=== PATIENT | female | born 1990 | race Caucasian/White ===

== ENCOUNTER 2018-01-14 11:57 | Inpatient (IN) | payer BC ==
[~2018-01-14] VITALS: Ht 167.6 cm; Wt 81.8 kg
[2018-01-14] VITALS (9 sets, daily range): BP systolic 89–1105; BP diastolic 44–60; PULSE 95–107; TEMP 99.3–100.8
[~2018-01-14 11:57] MED LIST: FOLIC ACID0.4 MG PO; LAMICTAL 100MG100 MG; MAG-OX 400400 MG/TAB PO; MULTIVITAMIN FO1 CAP PO; ULTRAM 50MG TAB50 MG PO; VIMPAT200 MG PO; VIT D; ZOFRAN8 MG PO
[2018-01-14] MEDS ORDERED: KLOR-CON 88 ME1 PO (12:34)
[2018-01-14 12:36] LABS: HEMATOCRIT 39.6 % (37.0-47.0); HEMOGLOBIN 13.5 g/dl (12.5-16.0); MEAN CELL VOLUME 89 fl (80.0-100.0); MEAN CORPUSCULAR HEMOGLOBIN 30 pg (27.0-31.0); MEAN CORPUSCULAR HGB CONC 34 g/dl (33.0-37.0); MEAN PLATELET VOLUME 9.4 fl (7.4-10.4); PLATELET COUNT 320 K/mm3 (130-400); RED BLOOD COUNT 4.44 M/mm3 (4.10-5.30); REDCELL DISTRIBUTION WIDTH-CV 12.3 % (11.5-14.5)
[2018-01-14 12:43] LABS: ALANINE AMINOTRANSFERASE 35 U/L (9-52); ALBUMIN 4.7 gm/dL (3.5-5.0); ALKALINE PHOSPHATASE 104 U/L (50-136); ANION GAP 14 mmol/L (7-16); AST,SGOT 26 U/L (15-37); BILIRUBIN,TOTAL 3.5 mg/dL (0.0-1.0); BLOOD UREA NITROGEN 11 mg/dL (7-17); CALCIUM 9.2 mg/dL (8.4-10.2); CARBON DIOXIDE 25 mmol/L (22-30); CHLORIDE 96 mmol/L (98-107); CREATININE, serum 0.95 mg/dL (0.52-1.25); GLUCOSE 144 mg/dL (74-106); POTASSIUM 3.2 mmol/L (3.4-5.0); SODIUM 135 mmol/L (137-145); TOTAL PROTEIN 8.5 gm/dL (6.4-8.2)
[2018-01-14 12:51] LABS: LIPASE < 10 U/L (23-300)
[2018-01-14 13:37] LABS: COLLECTION METHOD CLEAN CATCH
[2018-01-14 13:51] LABS: PH 5 (5-8); URINE APPEARANCE Hazy; URINE BILIRUBIN Negative (NEGATIVE); URINE BLOOD 1+ (NEGATIVE); URINE COLOR Amber; URINE GLUCOSE Negative (NEGATIVE); URINE KETONE Trace (NEGATIVE); URINE LEUKOCYTE ESTERASE 1+ (NEGATIVE); URINE NITRATE Negative (NEGATIVE); URINE PROTEIN(semi-quant) 2+ (NEGATIVE); URINE UROBILINOGEN >=4.0 mg/dL (NEGATIVE)
[2018-01-14 14:02] LABS: SQUAMOUS EPITHELIAL 0-2 /hpf; URINE RBC 0-2 /hpf
[2018-01-14 14:03] LABS: MUCOUS Present /lpf
[2018-01-14 14:12] LABS: BAND 21 % (0-10); LYMPHOCYTE 16 % (20.0-51.0); NEUTROPHILS 63 % (42.0-75.2); PLATELET ESTIMATE INCREASED (NORMAL)
[2018-01-15 01:48] VITALS: BP 100/59; PULSE 94; TEMP 99.2
[2018-01-15 05:31] VITALS: BP 93/54; PULSE 79; TEMP 98.5
[2018-01-15 09:33] VITALS: BP 103/65; PULSE 90; TEMP 98.2
[2018-01-15 13:39] VITALS: BP 103/65; PULSE 98; TEMP 98.9
[2018-01-15 17:31] VITALS: BP 118/66; PULSE 98; TEMP 98.2
[2018-01-15 22:00] VITALS: BP 97/60; PULSE 102; TEMP 98.4
[2018-01-16 02:00] VITALS: BP 107/70; PULSE 100; TEMP 98.5
[2018-01-16 07:15] VITALS: BP 104/59; PULSE 101; TEMP 99
[2018-01-16 07:40] VITALS: BP 131/65; PULSE 107; TEMP 98.6
[2018-01-16 09:07] LABS: BASO % 0.3 % (0.0-2.0); EOS % 0.2 % (0-4.0); GRAN # 6.8 (1.4-6.5); GRAN % 64.8 % (42.2-75.2); LYMPH # 2.7 (1.2-3.4); LYMPH % 26.1 % (20.0-51.0); MEAN CELL VOLUME 92 fl (80.0-100.0); MEAN CORPUSCULAR HGB CONC 33 g/dl (33.0-37.0); MEAN PLATELET VOLUME 9.8 fl (7.4-10.4); MONO # 0.9 (0.1-0.6); MONO % 8.1 % (1.7-9.3); PLATELET COUNT 261 K/mm3 (130-400)
[2018-01-16 09:12] LABS: HEMATOCRIT 30.3 % (37.0-47.0); HEMOGLOBIN 9.9 g/dl (12.5-16.0); MEAN CORPUSCULAR HEMOGLOBIN 30 pg (27.0-31.0)
[2018-01-16 10:27] VITALS: BP 100/58; PULSE 101; TEMP 98
[2018-01-16 13:41] VITALS: BP 118/68; PULSE 102; TEMP 98.1
[2018-01-16] MEDS ORDERED: LEVAQUIN 5500 MG/TA1 PO (16:32)
[2018-01-16] MEDS ORDERED: FLAGYL500 MG PO (16:33)
== END 2018-01-16 17:10 | disposition home or self-care (01) | DRG 340 ==
LOC: COL.ER 11:57 → SDCO 15:03 → SURG 15:03 → SDCO 16:50 → SURG 16:54
PROVIDERS: Nurse Practitioner; Surgery
PROC: 0DTJ4ZZ Resection of Appendix, Percutaneous Endoscopic Approach (ICD-10-PCS; principal; 2018-01-14 17:00)
DX: K35.3 Acute appendicitis with localized peritonitis (principal); G40.909 Epilepsy, unspecified, not intractable, without status epilepticus
CPT/HCPCS: OP; A9284; J0696; J1100; J1335; J2405; J2704; J2710; J2765; J3010; J7030; J7040; J7050; Q9967

== ENCOUNTER → 2018-02-08 | Outpatient (CLI) | payer BC ==
[~2018-02-08] MED LIST changes: +FLAGYL500 MG PO; +KLOR-CON 88 ME1 PO; +LEVAQUIN 5500 MG/TA1 PO
== END ==
LOC: COL.RAD 10:19
DX: R10.11 Right upper quadrant pain (principal)